=== PATIENT | female | born 1950 | race Caucasian/White ===

== ENCOUNTER → 2017-07-19 | Outpatient (CLI) | payer MEDICARE, OTHER ==
[~2017-07-19] MED LIST: ALBU8.5H8 INH; AMIO200T42 PO; CARV3.122 PO; DIPH25CA61 PO; FLOVENT INH; FLUT1DIS3 INH; OMEP-110 PO; ZOLP10TA PO
== END | disposition home or self-care (01) ==
LOC: CVU 12:52
PROVIDERS: ATTEND Internal Medicine Cardiovascular Disease
DX: I34.0 Nonrheumatic mitral (valve) insufficiency (principal); I48.91 Unspecified atrial fibrillation
CPT/HCPCS: 93306

== ENCOUNTER 2018-08-30 13:27 | Outpatient (CLI) | payer MEDICARE, OTHER | END 2018-08-30 23:59 | disposition home or self-care (01) | LOC: CFH 13:27 | PROVIDERS: ATTEND Internal Medicine Cardiovascular Disease | DX: I08.3 Combined rheumatic disorders of mitral, aortic and tricuspid valves (principal); I50.31 Acute diastolic (congestive) heart failure; I48.91 Unspecified atrial fibrillation | CPT/HCPCS: 93306 ==

== ENCOUNTER 2018-08-31 12:12 | Outpatient (CLI) | payer MEDICARE, OTHER | END 2018-08-31 23:59 | disposition home or self-care (01) | LOC: CFH 12:12 | PROVIDERS: ATTEND Nurse Practitioner Family | DX: I51.7 Cardiomegaly (principal); J98.4 Other disorders of lung; I48.91 Unspecified atrial fibrillation | CPT/HCPCS: 71046 ==

== ENCOUNTER 2018-09-29 12:20 | Outpatient (CLI) | payer MEDICARE, OTHER | END 2018-09-29 23:59 | disposition home or self-care (01) | LOC: CFH 12:20 | PROVIDERS: ATTEND Nurse Practitioner Family | DX: I50.31 Acute diastolic (congestive) heart failure (principal); I48.91 Unspecified atrial fibrillation | CPT/HCPCS: 78452; 93017; A9502; J2785 ==